=== PATIENT | female | born 1995 | race Caucasian/White ===

== ENCOUNTER 2018-09-21 03:09 | Emergency (ER) | payer MEDICAID ==
[~2018-09-21] VITALS: Ht 165.1 cm; Wt 75.0 kg
[~2018-09-21 03:09] MED LIST: FLUT200B INH; LEVO300T4 PO; ONDA4TAB10 PO; POTA10TA11 PO; PRAZ1CAP2 PO; TOPI25CA PO; VENL225T PO
[2018-09-21] MEDS ORDERED: DEXAMETHASONE 4 MG TABLET PO ONE (03:30)
[2018-09-21] MEDS ORDERED: ALBUTEROL/IPRATROPIUM 2.5MG/0.5MG, 3 ML NPPB ONE (03:30)
[2018-09-21] MEDS ORDERED: DEXAMETHASONE 4 MG TABLET ONE (03:34)
[2018-09-21] MEDS ORDERED: RACEPINEPHRINE INH 2.25%, 0.5ML NPPB PRN (04:30)
[2018-09-21 05:04] VITALS: BP 141/86
== END 2018-09-21 05:08 | disposition home or self-care (01) ==
LOC: ED 03:22
DX: J45.901 Unspecified asthma with (acute) exacerbation (principal); J05.0 Acute obstructive laryngitis [croup]; E11.9 Type 2 diabetes mellitus without complications; G89.29 Other chronic pain; F20.9 Schizophrenia, unspecified; F31.9 Bipolar disorder, unspecified
CPT/HCPCS: 71045; 93005; 94640; 99284; J7620

== ENCOUNTER 2018-10-05 18:01 | Emergency (ER) | payer MEDICAID ==
[~2018-10-05] VITALS: Ht 157.5 cm; Wt 64.6 kg
[2018-10-05 19:12] LABS: BASOPHILS # (AUTO) 0.05 x10^3/uL (0-0.1); BASOPHILS % (AUTO) 1 % (0-1); EOSINOPHILS # (AUTO) 0.06 x10^3/uL (0-0.4); EOSINOPHILS % (AUTO) 1 % (1-7); LYMPHOCYTES # (AUTO) 2.11 x10^3/uL (1-3.4); LYMPHOCYTES % (AUTO) 25 % (22-44); MD NO; MEAN CORPUSCULAR HEMOGLOBIN 31.9 pg (27.0-34.8); MEAN CORPUSCULAR HGB CONC 33.8 g/dL (32.4-35.8); MEAN CORPUSCULAR VOLUME 94.6 fL (80-100); MEAN PLATELET VOLUME 9.6 fL (7.4-10.4); MONOCYTES # (AUTO) 0.65 x10^3/uL (0.2-0.8); MONOCYTES % (AUTO) 8 % (2-9); NEUTROPHILS # (AUTO) 5.69 x10^3/uL (1.8-6.8); NEUTROPHILS % (AUTO) 66 % (42-75); PLATELET COUNT 214 x10^3/uL (130-400); RED BLOOD COUNT 4.41 x10^6/uL (3.82-5.3); RED CELL DISTRIBUTION WIDTH 13.2 % (9.6-15.2)
[2018-10-05 19:27] VITALS: BP 115/69
== END 2018-10-05 20:44 | disposition home or self-care (01) ==
LOC: ED 20:15
DX: R07.0 Pain in throat (principal); J45.909 Unspecified asthma, uncomplicated; J02.9 Acute pharyngitis, unspecified; F20.9 Schizophrenia, unspecified; R49.0 Dysphonia
CPT/HCPCS: 36415; 85025; 86308; 99284

== ENCOUNTER 2018-10-22 20:55 | Inpatient (IN) | payer MEDICAID ==
[~2018-10-22] VITALS: Ht 157.5 cm; Wt 59.9 kg
[2018-10-22] MEDS ORDERED: methylPREDNISolone SOD SUCC 125 MG/2 ML IVP ONE (21:00)
[2018-10-22] MEDS ORDERED: SODIUM CHLORIDE FLUSH 10ML SYR IVF ONE (21:00)
[2018-10-22] MEDS ORDERED: ALBUTEROL/IPRATROPIUM 2.5MG/0.5MG, 3 ML NPPB ONE (21:00)
[2018-10-22] MEDS ORDERED: ALBUTEROL/IPRATROPIUM 2.5MG/0.5MG, 3 ML ONE (21:15)
[2018-10-22 21:19] LABS: BASOPHILS # (AUTO) 0.03 x10^3/uL (0-0.1); BASOPHILS % (AUTO) 0 % (0-1); EOSINOPHILS # (AUTO) 0.07 x10^3/uL (0-0.4); EOSINOPHILS % (AUTO) 1 % (1-7); LYMPHOCYTES # (AUTO) 3.12 x10^3/uL (1-3.4); LYMPHOCYTES % (AUTO) 30 % (22-44); MD NO; MEAN CORPUSCULAR HEMOGLOBIN 31.6 pg (27.0-34.8); MEAN CORPUSCULAR HGB CONC 33.7 g/dL (32.4-35.8); MEAN CORPUSCULAR VOLUME 93.7 fL (80-100); MEAN PLATELET VOLUME 8.8 fL (7.4-10.4); MONOCYTES # (AUTO) 0.84 x10^3/uL (0.2-0.8); MONOCYTES % (AUTO) 8 % (2-9); NEUTROPHILS # (AUTO) 6.48 x10^3/uL (1.8-6.8); NEUTROPHILS % (AUTO) 62 % (42-75); PLATELET COUNT 250 x10^3/uL (130-400); RED BLOOD COUNT 4.42 x10^6/uL (3.82-5.3); RED CELL DISTRIBUTION WIDTH 13.5 % (9.6-15.2)
[2018-10-22] MEDS ORDERED: methylPREDNISolone SOD SUCC 125 MG/2 ML ONE ×2 (21:29→21:46)
[2018-10-22 21:30] LABS: ALBUMIN 3.2 g/dL (3.4-5.0); ANION GAP 13 mmol/L (5-15); CALCIUM 8.5 mg/dL (8.5-10.1); CHLORIDE 100 mmol/L (98-107); CREATININE 0.71 mg/dL (0.55-1.02)
[2018-10-22] MEDS ORDERED: OMNIPAQUE 350 MG/ML, 150 ML BOTTLE ONE (23:26)
[2018-10-22] MEDS ORDERED: INSU100C5 SQ-INSULIN (23:28)
[2018-10-22] MEDS ORDERED: ALBU18HF INH (23:28)
[2018-10-22] MEDS ORDERED: PREN-3 PO (23:28)
[2018-10-22] MEDS ORDERED: INSU100V13 SC (23:28)
[2018-10-22] MEDS ORDERED: FLUT200B INH (23:28)
[2018-10-22] MEDS ORDERED: ALBU0.63 NEB (23:28)
[2018-10-22] MEDS ORDERED: VENL150T PO (23:28)
[2018-10-22] MEDS ORDERED: ALBUTEROL SULFATE 2.5MG/0.5ML ONE (23:50)
[2018-10-22] MEDS ORDERED: SODIUM CHLORIDE 0.9% 1,000 ML IV SCH (23:51)
[2018-10-23] MEDS ORDERED: KETOROLAC 30 MG/1 ML IV PRN
[2018-10-23] MEDS ORDERED: PROMETHAZINE 25 MG/ML, 1ML IM PRN
[2018-10-23] MEDS ORDERED: ONDANSETRON 2MG/ML, 2ML IVPush PRN
[2018-10-23] MEDS ORDERED: hydrALAzine 20 MG/ML, 1ML IVPush PRN
[2018-10-23] MEDS ORDERED: DOCUSATE 100 MG CAPSULE PO PRN
[2018-10-23] MEDS ORDERED: RACEPINEPHRINE INH 2.25%, 0.5ML NPPB ONE
[2018-10-23] MEDS ORDERED: ONDANSETRON ODT 4 MG PO PRN
[2018-10-23] MEDS ORDERED: ALBUTEROL 0.5%, 20ML NPPB SCH
[2018-10-23] MEDS ORDERED: IBUPROFEN 600 MG TABLET PO PRN
[2018-10-23] MEDS ORDERED: LABETALOL 5MG/ML, 20ML IVPush PRN
[2018-10-23] MEDS ORDERED: ACETAMINOPHEN 325 MG TABLET PO PRN
[2018-10-23] MEDS ORDERED: GUAIFENESIN/DM 200-20MG, 10ML UDC PO PRN
[2018-10-23] MEDS ORDERED: FLUTICASONE/VILANTEROL 200-25MCG/INH INH SCH (00:30)
[2018-10-23 00:42] LABS: FREE T4 (FREE THYROXINE) 0.82 ng/dL (0.76-1.46)
[2018-10-23 00:45] LABS: HEMOGLOBIN A1C 9.6 % (4.2-6.3)
[2018-10-23] MEDS ORDERED: RACEPINEPHRINE INH 2.25%, 0.5ML ONE (00:45)
[2018-10-23] MEDS ORDERED: AMOXICILLIN/CLAV 875-125MG TABLET ONE (00:45)
[2018-10-23] MEDS ORDERED: HEPARIN 5,000 UNITS/ML, 1ML ONE (00:45)
[2018-10-23] MEDS: AMOXICILLIN/CLAV 875-125MG TABLET PO SCH ×3 (00:50→20:41)
[2018-10-23] MEDS: HEPARIN 5,000 UNITS/ML, 1ML SQ SCH ×3 (00:53→16:02)
[2018-10-23] MEDS ORDERED: ALBUTEROL/IPRATROPIUM 2.5MG/0.5MG, 3 ML NPPB PRN (01:00)
[2018-10-23] MEDS: ALBUTEROL/IPRATROPIUM 2.5MG/0.5MG, 3 ML NPPB SCH ×5 (01:00→18:49)
[2018-10-23] MEDS: INSULIN LISPRO 100 UNITS/ML, PEN SQ-INSULIN SCH ×5 (02:35→20:34)
[2018-10-23] MEDS: VENLAFAXINE 75 MG CAP ER PO SCH ×2 (02:35→20:41)
[2018-10-23] MEDS: INSULIN GLARGINE 100 UNITS/ML, PEN SQ-INSULIN SCH ×3 (02:35→20:33)
[2018-10-23 02:45] VITALS: BP 108/70
[2018-10-23 02:54] LABS: MICROSCOPIC NOT IND
[2018-10-23 02:58] LABS: CULTURE INDICATED? NO
[2018-10-23 05:24] LABS: BASOPHILS # (AUTO) 0.03 x10^3/uL (0-0.1); BASOPHILS % (AUTO) 0 % (0-1); EOSINOPHILS % (AUTO) 0 % (1-7); LYMPHOCYTES # (AUTO) 1.07 x10^3/uL (1-3.4); LYMPHOCYTES % (AUTO) 7 % (22-44); MD NO; MEAN CORPUSCULAR HEMOGLOBIN 31.6 pg (27.0-34.8); MEAN CORPUSCULAR HGB CONC 33.9 g/dL (32.4-35.8); MEAN CORPUSCULAR VOLUME 93.3 fL (80-100); MONOCYTES % (AUTO) 1 % (2-9); NEUTROPHILS # (AUTO) 13.47 x10^3/uL (1.8-6.8); NEUTROPHILS % (AUTO) 92 % (42-75); PLATELET COUNT 234 x10^3/uL (130-400); RED BLOOD COUNT 4.12 x10^6/uL (3.82-5.3); RED CELL DISTRIBUTION WIDTH 13.4 % (9.6-15.2)
[2018-10-23 05:44] LABS: CHLORIDE 106 mmol/L (98-107)
[2018-10-23 05:54] LABS: ALANINE AMINOTRANSFERASE 15 U/L (12-78); ALBUMIN 3.2 g/dL (3.4-5.0); ALKALINE PHOSPHATASE 158 U/L (45-117); ANION GAP 18 mmol/L (5-15); BILIRUBIN,TOTAL 0.8 mg/dL (0.2-1.0); CALCIUM 8.2 mg/dL (8.5-10.1); CHOL/HDL RATIO 6.1; CHOLESTEROL, TOTAL 164 mg/dL (140-239); CREATININE 0.84 mg/dL (0.55-1.02); HDL CHOL % 16 % (28-40); HDL CHOLESTEROL (DIRECT) 27 mg/dL (40-60); LDL CHOLESTEROL,CALCULATED 122 mg/dL (54-169); LDL/HDL RATIO 4.5 (0.5-3.0); TOTAL PROTEIN 7.1 g/dL (6.4-8.2); TRIGLYCERIDES 77 mg/dL (50-200); VLDL CHOLESTEROL 15 mg/dL (0-25)
[2018-10-23] MEDS ORDERED: LEVOTHYROXINE 100 MCG TABLET PO SCH (06:00)
[2018-10-23 07:15] VITALS: BP 106/68
[2018-10-23] MEDS ORDERED: methylPREDNISolone SOD SUCC 125 MG/2 ML ONE (07:43)
[2018-10-23] MEDS: methylPREDNISolone SOD SUCC 125 MG/2 ML IVPush SCH ×3 (07:58→20:19)
[2018-10-23] MEDS: PRENATAL VIT/IRON/FA 1 EACH TABLET PO SCH ×2 (09:22→20:41)
[2018-10-23] MEDS: BUDESONIDE 0.5 MG/2 ML INHA NPPB SCH ×2 (10:15→18:49)
[2018-10-23] MEDS: LEVETIRACETAM 500 MG TABLET PO SCH ×2 (11:14→20:41)
[2018-10-23 14:13] VITALS: BP 110/78
[2018-10-23 19:52] VITALS: BP 124/81
== END 2018-10-23 22:00 | disposition left against medical advice (07) | DRG 189 ==
LOC: ED 21:30 → EDIP 23:50 → 4NOR 10-23 01:20
PROVIDERS: ADMIT Internal Medicine; ATTEND Internal Medicine
DX: J96.01 Acute respiratory failure with hypoxia (principal); E44.0 Moderate protein-calorie malnutrition; J45.902 Unspecified asthma with status asthmaticus; D72.829 Elevated white blood cell count, unspecified; E03.9 Hypothyroidism, unspecified; E10.65 Type 1 diabetes mellitus with hyperglycemia; Z68.24 Body mass index [BMI] 24.0-24.9, adult; F17.210 Nicotine dependence, cigarettes, uncomplicated; F20.9 Schizophrenia, unspecified; F43.10 Post-traumatic stress disorder, unspecified; G43.909 Migraine, unspecified, not intractable, without status migrainosus; T38.0X5A Adverse effect of glucocorticoids and synthetic analogues, initial encounter; Z79.4 Long term (current) use of insulin; Z81.8 Family history of other mental and behavioral disorders; Z83.3 Family history of diabetes mellitus; Z53.21 Procedure and treatment not carried out due to patient leaving prior to being seen by health care provider; Y92.89 Other specified places as the place of occurrence of the external cause; Z88.8 Allergy status to other drugs, medicaments and biological substances; G40.909 Epilepsy, unspecified, not intractable, without status epilepticus
CPT/HCPCS: 36415; J7620; J7626; 70491; 71045; 71260; 80048; 80053; 80061; 81003; 82040; 82962; 83036; 83735; 84439; 84443; 84703; 85025; 86308; 87081; 87880; 93005; 94640; 94644; 96374; J1644; Q9967; J1815; J2930; J7030

== ENCOUNTER 2019-02-12 03:27 | Emergency (ER) | payer MEDICAID ==
[~2019-02-12] VITALS: Ht 157.5 cm; Wt 68.0 kg
[~2019-02-12 03:27] MED LIST changes: +ALBU0.63 NEB; +ALBU18HF INH; +INSU100C5 SQ-INSULIN; +INSU100V11 SQ; +INSU100V13 SC; +LEVE250T28 PO; +PREN-3 PO; +TOPI200T6 PO; +TRAZ50TA66 PO; +VENL150C PO; +VENL150T PO
[2019-02-12] MEDS ORDERED: KETOROLAC 30 MG/1 ML IM ONE (04:00)
[2019-02-12 04:14] LABS: BASOPHILS # (AUTO) 0.08 x10^3/uL (0-0.1); BASOPHILS % (AUTO) 1 % (0-1); EOSINOPHILS # (AUTO) 0.07 x10^3/uL (0-0.4); EOSINOPHILS % (AUTO) 1 % (1-7); LYMPHOCYTES # (AUTO) 2.39 x10^3/uL (1-3.4); LYMPHOCYTES % (AUTO) 29 % (22-44); MD NO; MEAN CORPUSCULAR HGB CONC 35.2 g/dL (32.4-35.8); MEAN CORPUSCULAR VOLUME 99.6 fL (80-100); MEAN PLATELET VOLUME 9.2 fL (7.4-10.4); MONOCYTES # (AUTO) 0.51 x10^3/uL (0.2-0.8); MONOCYTES % (AUTO) 6 % (2-9); NEUTROPHILS # (AUTO) 5.09 x10^3/uL (1.8-6.8); NEUTROPHILS % (AUTO) 63 % (42-75); PLATELET COUNT 222 x10^3/uL (130-400); RED BLOOD COUNT 3.64 x10^6/uL (3.82-5.3); RED CELL DISTRIBUTION WIDTH 14.6 % (9.6-15.2)
[2019-02-12 04:25] LABS: ALANINE AMINOTRANSFERASE 52 U/L (12-78); ALBUMIN 3.1 g/dL (3.4-5.0); ANION GAP 13 mmol/L (5-15); CHLORIDE 108 mmol/L (98-107); CREATININE 1.07 mg/dL (0.55-1.02)
--- NOTE | 2019-02-12 04:26 | NUR ---
pt in hospital gown, pt able to ambulate to bathroom steadily to provide urine sample. pt to US at this time.
[2019-02-12 04:29] LABS: ALKALINE PHOSPHATASE 139 U/L (45-117); BILIRUBIN,TOTAL 0.5 mg/dL (0.2-1.0); TOTAL PROTEIN 6.6 g/dL (6.4-8.2)
[2019-02-12 04:43] LABS: MICROSCOPIC AUTO
[2019-02-12 04:44] LABS: CULTURE INDICATED? NO
[2019-02-12] MEDS ORDERED: INSU100C5 SQ-INSULIN (05:40)
[2019-02-12] MEDS ORDERED: KETOROLAC 30 MG/1 ML ONE (05:57)
--- NOTE | 2019-02-12 06:01 | NUR ---
given toradol im shot then will be dc'd
[2019-02-12 06:14] VITALS: BP 118/78
== END 2019-02-12 06:19 | disposition home or self-care (01) ==
LOC: ED 06:00
DX: N94.4 Primary dysmenorrhea (principal); J45.909 Unspecified asthma, uncomplicated; E11.9 Type 2 diabetes mellitus without complications; F17.200 Nicotine dependence, unspecified, uncomplicated
CPT/HCPCS: 36415; 76830; 80053; 81001; 84702; 85025; 96372; 99284; J1885

== ENCOUNTER 2019-03-19 17:50 | Inpatient (IN) | payer MEDICAID ==
[~2019-03-19] VITALS: Ht 157.5 cm; Wt 68.5 kg
[2019-03-19] MEDS ORDERED: SODIUM CHLORIDE 0.9% 1,000ML IVBOLUS ONE (18:30)
[2019-03-19] MEDS ORDERED: DIPHENHYDRAMINE 50 MG/ML, 1ML IVPush ONE (18:30)
[2019-03-19] MEDS ORDERED: PROCHLORPERAZINE 5 MG/ML, 2ML IVPush ONE (18:30)
[2019-03-19] MEDS ORDERED: SODIUM CHLORIDE FLUSH 10ML SYR IVF ONE (18:30)
[2019-03-19] MEDS ORDERED: PROCHLORPERAZINE 5 MG/ML, 2ML ONE (18:46)
[2019-03-19] MEDS ORDERED: DIPHENHYDRAMINE 50 MG/ML, 1ML ONE (18:47)
[2019-03-19 18:54] LABS: ANION GAP 13 mmol/L (5-15); CALCIUM 8.9 mg/dL (8.5-10.1); CHLORIDE 103 mmol/L (98-107); CREATININE 1.16 mg/dL (0.55-1.02)
[2019-03-19 19:03] LABS: FREE T4 (FREE THYROXINE) 0.45 ng/dL (0.76-1.46)
[2019-03-19 19:22] LABS: BASOPHILS # (AUTO) 0.11 x10^3/uL (0-0.1); BASOPHILS % (AUTO) 1 % (0-1); EOSINOPHILS # (AUTO) 0.05 x10^3/uL (0-0.4); EOSINOPHILS % (AUTO) 1 % (1-7); LYMPHOCYTES # (AUTO) 2.84 x10^3/uL (1-3.4); LYMPHOCYTES % (AUTO) 28 % (22-44); MD SCAN; MEAN CORPUSCULAR HEMOGLOBIN 33.7 pg (27.0-34.8); MEAN CORPUSCULAR HGB CONC 34.3 g/dL (32.4-35.8); MEAN CORPUSCULAR VOLUME 98.1 fL (80-100); MEAN PLATELET VOLUME 9.2 fL (7.4-10.4); MONOCYTES # (AUTO) 0.53 x10^3/uL (0.2-0.8); MONOCYTES % (AUTO) 5 % (2-9); NEUTROPHILS # (AUTO) 6.74 x10^3/uL (1.8-6.8); NEUTROPHILS % (AUTO) 66 % (42-75); PLATELET COUNT 225 x10^3/uL (130-400); RED BLOOD COUNT 4.47 x10^6/uL (3.82-5.3); RED CELL DISTRIBUTION WIDTH 12.8 % (9.6-15.2)
[2019-03-19] MEDS: HEPARIN 5,000 UNITS/ML, 1ML SQ SCH (21:30)
[2019-03-19] MEDS ORDERED: ACETAMINOPHEN 325 MG TABLET PO PRN (21:30)
[2019-03-19] MEDS ORDERED: ONDANSETRON 2MG/ML, 2ML IVPush PRN (21:30)
[2019-03-19] MEDS ORDERED: INSULIN DETEMIR 15 UNIT SC SCH (21:30)
[2019-03-19] MEDS: LACTATED RINGERS 1,000 ML IV SCH (21:43)
[2019-03-19 22:31] LABS: HEMOGLOBIN A1C 8.2 % (4.2-6.3)
[2019-03-19] MEDS: LEVETIRACETAM 500 MG TABLET PO SCH (22:31)
[2019-03-19] MEDS: LIOTHYRONINE 5 MCG TABLET PO SCH (22:31)
[2019-03-19 22:32] VITALS: BP_SYST 100; BP_SYST 88; BP_SYST 96; BP_DIAS 60; BP_DIAS 65; BP_DIAS 67
[2019-03-20 01:30] VITALS: BP 93/59
[2019-03-20 01:35] VITALS: BP 112/72
[2019-03-20 01:40] VITALS: BP 98/60
[2019-03-20] MEDS: HEPARIN 5,000 UNITS/ML, 1ML SQ SCH ×2 (05:07→14:27)
[2019-03-20] MEDS ORDERED: LEVOTHYROXINE 150 MCG TABLET PO SCH (06:00)
[2019-03-20 06:14] LABS: ALBUMIN 2.8 g/dL (3.4-5.0); ANION GAP 9 mmol/L (5-15); CALCIUM 8.2 mg/dL (8.5-10.1); CHLORIDE 112 mmol/L (98-107)
[2019-03-20 06:18] LABS: ALANINE AMINOTRANSFERASE 21 U/L (12-78); ALKALINE PHOSPHATASE 137 U/L (45-117); BILIRUBIN,TOTAL 0.5 mg/dL (0.2-1.0); CREATININE 0.83 mg/dL (0.55-1.02); TOTAL PROTEIN 5.8 g/dL (6.4-8.2)
[2019-03-20] MEDS: INSULIN LISPRO 100 UNITS/ML, PEN SQ-INSULIN SCH ×6 (07:00→16:00)
[2019-03-20 08:29] VITALS: BP 100/68
[2019-03-20 08:30] VITALS: BP 102/69
[2019-03-20 08:31] VITALS: BP 102/72
[2019-03-20] MEDS ORDERED: DEXTROSE 4 GM TAB.CHEW PO PRN (09:00)
[2019-03-20] MEDS ORDERED: GLUCAGON 1 MG IM PRN (09:00)
[2019-03-20] MEDS ORDERED: SODIUM CHLORIDE FLUSH 10ML SYR IVF SCH (09:00)
[2019-03-20] MEDS ORDERED: DEXTROSE 50%, 50ML SYRINGE IVPush PRN (09:00)
[2019-03-20] MEDS ORDERED: INSULIN GLARGINE 100 UNITS/ML, PEN SQ-INSULIN SCH (09:00)
[2019-03-20] MEDS: LIOTHYRONINE 5 MCG TABLET PO SCH (09:45)
[2019-03-20] MEDS: LEVETIRACETAM 500 MG TABLET PO SCH (09:46)
[2019-03-20 09:49] LABS: AMPHETAMINE SCREEN, URINE Negative (Negative); BARBITURATE SCREEN, URINE Negative (Negative); BENZODIAZEPINE SCREEN, URINE Negative (Negative); CANNABINOID SCREEN, URINE Positive (Negative); COCAINE SCREEN, URINE Negative (Negative); METHADONE SCREEN, URINE Negative (Negative); OPIATE SCREEN, URINE Negative (Negative)
[2019-03-20] MEDS: LACTATED RINGERS 1,000 ML IV SCH ×2 (09:49→17:30)
[2019-03-20] MEDS ORDERED: LEVO300T4 PO (16:39)
== END 2019-03-20 17:46 | disposition home or self-care (01) | DRG 73 ==
LOC: ED 18:32 → EDIP 21:11 → 4EST 22:11
PROVIDERS: ADMIT Family Medicine; ATTEND Family Medicine
DX: G90.9 Disorder of the autonomic nervous system, unspecified (principal); N17.0 Acute kidney failure with tubular necrosis; E03.9 Hypothyroidism, unspecified; E86.0 Dehydration; F12.90 Cannabis use, unspecified, uncomplicated; F17.210 Nicotine dependence, cigarettes, uncomplicated; F20.9 Schizophrenia, unspecified; F31.9 Bipolar disorder, unspecified; F43.10 Post-traumatic stress disorder, unspecified; G40.909 Epilepsy, unspecified, not intractable, without status epilepticus; H53.2 Diplopia; I95.0 Idiopathic hypotension; I07.1 Rheumatic tricuspid insufficiency; J45.909 Unspecified asthma, uncomplicated; G43.909 Migraine, unspecified, not intractable, without status migrainosus; E10.649 Type 1 diabetes mellitus with hypoglycemia without coma; Z59.0 Homelessness; Z79.4 Long term (current) use of insulin; Z79.899 Other long term (current) drug therapy; Z82.3 Family history of stroke; Z91.14 Patient's other noncompliance with medication regimen
CPT/HCPCS: 36415; 80048; 80053; 80307; 82040; 82947; 82962; 83036; 83605; 84439; 84443; 84703; 85025; 93005; 93306; 96360; G0378; J0780; J1200; J1815; J7030; J7120

== ENCOUNTER 2019-04-16 18:15 | Emergency (ER) | payer MEDICAID ==
[~2019-04-16] VITALS: Ht 157.5 cm; Wt 66.0 kg
--- NOTE | 2019-04-16 18:50 | NUR ---
PT AMBULATED STEADILY TO ROOM FROM TRIAGE WITH TECH. NAD NOTED. PT REPORTS TERRELL/N/V X SEVERAL DAYS, SYNCOPAL EPISODE X1 TODAY. FSBS FOUND PT TO BE HYPERGLYCEMIC, 551. ERP AWARE. ERP AT BEDSIDE FOR INITIAL ASSESSMENT. BP/SPO2/ECG MONITORING IN PLACE. SINUS TACH ON MONITOR. REPORT TO YOLANDE MAI RN
--- NOTE | 2019-04-16 18:59 | NUR ---
BEDSIDE REPORT RECEIVED FROM DAMON CLIFFORD, ASSUMING CARE OF PT
[2019-04-16 19:21] LABS: PH, VENOUS 7.425 pH (7.320-7.420)
[2019-04-16 19:22] LABS: O2 FLOW RA L/min
[2019-04-16] MEDS ORDERED: ACETAMINOPHEN 500 MG TABLET ONE (19:23)
--- NOTE | 2019-04-16 19:24 | NUR ---
PT MEDICATED PER MAR FOR TERRELL.
[2019-04-16 19:25] LABS: BASOPHILS # (AUTO) 0.04 x10^3/uL (0-0.1); BASOPHILS % (AUTO) 1 % (0-1); EOSINOPHILS # (AUTO) 0.03 x10^3/uL (0-0.4); EOSINOPHILS % (AUTO) 0 % (1-7); LYMPHOCYTES # (AUTO) 1.84 x10^3/uL (1-3.4); LYMPHOCYTES % (AUTO) 23 % (22-44); MD NO; MEAN CORPUSCULAR HEMOGLOBIN 33.4 pg (27.0-34.8); MEAN CORPUSCULAR HGB CONC 33.4 g/dL (32.4-35.8); MEAN CORPUSCULAR VOLUME 99.9 fL (80-100); MEAN PLATELET VOLUME 9.4 fL (7.4-10.4); MONOCYTES # (AUTO) 0.73 x10^3/uL (0.2-0.8); MONOCYTES % (AUTO) 9 % (2-9); NEUTROPHILS # (AUTO) 5.26 x10^3/uL (1.8-6.8); NEUTROPHILS % (AUTO) 67 % (42-75); PLATELET COUNT 220 x10^3/uL (130-400); RED BLOOD COUNT 4.07 x10^6/uL (3.82-5.3); RED CELL DISTRIBUTION WIDTH 13.1 % (9.6-15.2)
[2019-04-16 19:30] LABS: MICROSCOPIC NOT IND
[2019-04-16] MEDS ORDERED: ACETAMINOPHEN 500 MG TABLET PO ONE (19:30)
[2019-04-16] MEDS ORDERED: SODIUM CHLORIDE FLUSH 10ML SYR IVF ONE (19:30)
[2019-04-16] MEDS ORDERED: SODIUM CHLORIDE 0.9% 1,000ML IVBOLUS ONE ×2 (19:30→20:00)
[2019-04-16 19:32] LABS: ALBUMIN 3.6 g/dL (3.4-5.0); CREATININE 0.92 mg/dL (0.55-1.02)
[2019-04-16 19:35] LABS: CULTURE INDICATED? NO
[2019-04-16 20:00] LABS: ANION GAP 7 mmol/L (5-15); CHLORIDE 101 mmol/L (98-107)
[2019-04-16 20:22] LABS: ACETONE, SERUM Small (20mg/dL) mg/dL (Negative)
--- NOTE | 2019-04-16 20:25 | NUR ---
SECOND LITER COMPLETED AND BLOOD SUGAR CHECKED, NOTIFIED. AWAITING RECHECK AND DISPO
[2019-04-16] MEDS ORDERED: INSULIN SINGLE DOSE, ER SQ-INSULIN ONE ×2 (20:51→22:08)
--- NOTE | 2019-04-16 20:54 | NUR ---
PT MEDICATED WITH INSULIIN PER JAN AND MD REQUEST. PT RESTING IN ROOM, NADN, VSS. CALL LIGHT WITHIN REACH
[2019-04-16] MEDS ORDERED: INSULIN REGULAR 100 UNITS/ML, 3ML VIAL SQ-INSULIN ONE ×2 (21:00→22:30)
--- NOTE | 2019-04-16 22:00 | NUR ---
BLOOD SUGAR RECHECKED AFTER INSULIN, 422. AWAITING MD RECHECK AND DISPO. PT SLEEPING IN ROOM, VINEET HARMON. CALL LIGHT WITHIN REACH
--- NOTE | 2019-04-16 22:10 | NUR ---
ADDITIONAL ORDERS RECEIVED FOR INSULIN, PT MEDICATED PER MAR FOR BS OF 422. STATES LOOKING FOR BLOOD SUGAR TO BE IN THE LOW 300s. WILL CONTINUE TO MONITOR.
--- NOTE | 2019-04-16 22:22 | NUR ---
PT STATES NEEDING TO LEAVE, MD UPDATED. MD TO BEDSIDE TO RECEK PT. DC PAPERS RECEIVED.
[2019-04-16 22:26] VITALS: BP 108/68
== END 2019-04-16 22:28 | disposition home or self-care (01) ==
LOC: ED 22:15
DX: E11.65 Type 2 diabetes mellitus with hyperglycemia (principal); R55 Syncope and collapse; R11.2 Nausea with vomiting, unspecified; R51 Headache; F31.9 Bipolar disorder, unspecified; J45.909 Unspecified asthma, uncomplicated; F20.9 Schizophrenia, unspecified; Z86.39 Personal history of other endocrine, nutritional and metabolic disease
CPT/HCPCS: 80048; 81003; 82010; 82040; 82803; 82962; 85025; 96360; 96372; 99283; J7030

== ENCOUNTER 2019-09-25 02:18 | Emergency (ER) | payer SELFPAY ==
[~2019-09-25] VITALS: Ht 157.5 cm; Wt 59.2 kg
[~2019-09-25 02:18] MED LIST changes: -TOPI25CA PO; +TOPI25CA3 PO
[2019-09-25] MEDS ORDERED: HYDROcodone/APAP 5/325 TABLET PO ONE (02:30)
[2019-09-25] MEDS ORDERED: HYDROcodone/APAP 5/325 TABLET ONE (02:39)
[2019-09-25 03:49] VITALS: BP 132/74
== END 2019-09-25 03:50 | disposition home or self-care (01) ==
LOC: ED 03:30
DX: S52.501A Unspecified fracture of the lower end of right radius, initial encounter for closed fracture (principal); E11.9 Type 2 diabetes mellitus without complications; F17.200 Nicotine dependence, unspecified, uncomplicated; W01.0XXA Fall on same level from slipping, tripping and stumbling without subsequent striking against object, initial encounter; Y93.89 Activity, other specified; Y92.89 Other specified places as the place of occurrence of the external cause; Y99.8 Other external cause status
CPT/HCPCS: 29125; 99283

== ENCOUNTER 2019-10-05 03:25 | Emergency (ER) | payer SELFPAY ==
[~2019-10-05] VITALS: Ht 157.5 cm; Wt 66.0 kg
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
[2019-10-05] MEDS ORDERED: ACETAMINOPHEN 500 MG TABLET ONE (03:40)
[2019-10-05] MEDS ORDERED: KETOROLAC 30 MG/1 ML ONE (03:41)
--- NOTE | 2019-10-05 03:47 | NUR ---
PT MEDICATED PER MAR
[2019-10-05] MEDS ORDERED: KETOROLAC 30 MG/1 ML IVPush ONE (04:00)
[2019-10-05] MEDS ORDERED: ACETAMINOPHEN 500 MG TABLET PO ONE (04:00)
[2019-10-05] MEDS ORDERED: SODIUM CHLORIDE 0.9% 1,000ML IVBOLUS ONE (04:00)
[2019-10-05 04:08] LABS: RAPID INFLUENZA A Negative (Negative); RAPID INFLUENZA B Negative (Negative)
[2019-10-05 04:22] LABS: BASOPHILS # (AUTO) 0.06 x10^3/uL (0-0.1); BASOPHILS % (AUTO) 1 % (0-1); EOSINOPHILS # (AUTO) 0.06 x10^3/uL (0-0.4); EOSINOPHILS % (AUTO) 1 % (1-7); LYMPHOCYTES # (AUTO) 1.49 x10^3/uL (1-3.4); LYMPHOCYTES % (AUTO) 21 % (22-44); MD NO; MEAN CORPUSCULAR HEMOGLOBIN 32.7 pg (27.0-34.8); MEAN CORPUSCULAR HGB CONC 33.3 g/dL (32.4-35.8); MEAN CORPUSCULAR VOLUME 98.2 fL (80-100); MEAN PLATELET VOLUME 9.4 fL (7.4-10.4); MONOCYTES # (AUTO) 0.58 x10^3/uL (0.2-0.8); MONOCYTES % (AUTO) 8 % (2-9); NEUTROPHILS # (AUTO) 5.06 x10^3/uL (1.8-6.8); NEUTROPHILS % (AUTO) 70 % (42-75); PLATELET COUNT 179 x10^3/uL (130-400); RED BLOOD COUNT 4.22 x10^6/uL (3.82-5.3); RED CELL DISTRIBUTION WIDTH 12.3 % (9.6-15.2)
[2019-10-05 04:24] LABS: ALANINE AMINOTRANSFERASE 29 U/L (12-78); ANION GAP 8 mmol/L (5-15); CALCIUM 8.4 mg/dL (8.5-10.1); CHLORIDE 107 mmol/L (98-107); CREATININE 0.79 mg/dL (0.55-1.02)
[2019-10-05 04:29] LABS: ALKALINE PHOSPHATASE 149 U/L (45-117); BILIRUBIN,TOTAL 0.9 mg/dL (0.2-1.0); TOTAL PROTEIN 6.6 g/dL (6.4-8.2)
[2019-10-05 04:30] VITALS: BP 104/68
--- NOTE | 2019-10-05 04:35 | NUR ---
PROVIDED PT WITH [facility] PER HER REQUEST, DENIES FURTHER NEEDS AT THIS TIME
== END 2019-10-05 05:15 | disposition home or self-care (01) ==
LOC: ED 03:40
DX: J02.8 Acute pharyngitis due to other specified organisms (principal); J31.0 Chronic rhinitis; B97.89 Other viral agents as the cause of diseases classified elsewhere; R11.2 Nausea with vomiting, unspecified; E11.9 Type 2 diabetes mellitus without complications; J45.909 Unspecified asthma, uncomplicated; F31.9 Bipolar disorder, unspecified; F20.9 Schizophrenia, unspecified; E03.9 Hypothyroidism, unspecified; F17.200 Nicotine dependence, unspecified, uncomplicated; Z91.040 Latex allergy status
CPT/HCPCS: 36415; 71045; 80053; 83690; 84703; 85025; 87400; 93005; 96361; 96374; 99284; J1885; J7030

== ENCOUNTER 2019-10-16 18:53 | Emergency (ER) | payer MEDICAID, OTHER ==
[~2019-10-16] VITALS: Ht 157.5 cm; Wt 66.4 kg
[2019-10-16 18:54] VITALS: BP 117/72
--- NOTE | 2019-10-16 19:39 | NUR ---
TO ROOM 06
== END 2019-10-16 20:32 | disposition home or self-care (01) ==
LOC: ED 20:26
DX: E10.65 Type 1 diabetes mellitus with hyperglycemia (principal); Z76.0 Encounter for issue of repeat prescription; Z86.39 Personal history of other endocrine, nutritional and metabolic disease; J45.909 Unspecified asthma, uncomplicated
CPT/HCPCS: 99283

== ENCOUNTER 2019-10-30 09:18 | Emergency (ER) | payer MEDICAID ==
[~2019-10-30] VITALS: Ht 157.5 cm; Wt 67.3 kg
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
[2019-10-30] MEDS ORDERED: SODIUM CHLORIDE FLUSH 10ML SYR IVF ONE (10:00)
[2019-10-30] MEDS ORDERED: DIPHENHYDRAMINE 50 MG/ML, 1ML IVPush ONE (10:00)
[2019-10-30] MEDS ORDERED: METOCLOPRAMIDE 5 MG/ML, 2ML IVPush ONE (10:00)
[2019-10-30] MEDS ORDERED: KETOROLAC 30 MG/1 ML IVPush ONE (10:00)
[2019-10-30] MEDS ORDERED: SODIUM CHLORIDE 0.9% 1,000ML IVBOLUS ONE (10:00)
[2019-10-30 10:03] LABS: MICROSCOPIC NOT IND
[2019-10-30] MEDS ORDERED: DIPHENHYDRAMINE 50 MG/ML, 1ML ONE (10:04)
--- NOTE | 2019-10-30 10:04 | NUR ---
TRIAGE AND CLINICAL SCREEN REVIEWED. URINE COLLECTED/SENT TO LAB. CALL LIGHT WITHIN REACH. Addendum: 10/30/19 at 1044 by KEMI [facility] AT [facility] D/T PT REPORT OF "DIARRHEA" FOR THREE DAYS.
[2019-10-30] MEDS ORDERED: METOCLOPRAMIDE 5 MG/ML, 2ML ONE (10:05)
[2019-10-30] MEDS ORDERED: KETOROLAC 30 MG/1 ML ONE (10:05)
[2019-10-30 10:07] LABS: CULTURE INDICATED? NO
--- NOTE | 2019-10-30 10:09 | NUR ---
LMP>2 MONTHS AGO, WAITING FOR HCG PRIOR TO PCXR
[2019-10-30 10:18] LABS: PH, VENOUS 7.372 pH (7.320-7.420)
[2019-10-30 10:22] LABS: BASOPHILS # (AUTO) 0.02 x10^3/uL (0-0.1); BASOPHILS % (AUTO) 1 % (0-1); EOSINOPHILS # (AUTO) 0.02 x10^3/uL (0-0.4); EOSINOPHILS % (AUTO) 0 % (1-7); LYMPHOCYTES # (AUTO) 1.66 x10^3/uL (1-3.4); LYMPHOCYTES % (AUTO) 42 % (22-44); MD NO; MEAN CORPUSCULAR HEMOGLOBIN 32.2 pg (27.0-34.8); MEAN CORPUSCULAR HGB CONC 33.4 g/dL (32.4-35.8); MEAN CORPUSCULAR VOLUME 96.3 fL (80-100); MONOCYTES # (AUTO) 0.43 x10^3/uL (0.2-0.8); MONOCYTES % (AUTO) 11 % (2-9); NEUTROPHILS # (AUTO) 1.85 x10^3/uL (1.8-6.8); NEUTROPHILS % (AUTO) 47 % (42-75); PLATELET COUNT 148 x10^3/uL (130-400); RED BLOOD COUNT 4.28 x10^6/uL (3.82-5.3); RED CELL DISTRIBUTION WIDTH 13.1 % (9.6-15.2)
--- NOTE | 2019-10-30 10:25 | NUR ---
task RN note: PIV placed, pt medicated per emar for headache, pt tolerated well. IVF infusing at this time. Report given to primary RN Susi.
[2019-10-30 10:33] LABS: ALANINE AMINOTRANSFERASE 42 U/L (12-78); ALBUMIN 3.1 g/dL (3.4-5.0); ANION GAP 11 mmol/L (5-15); CALCIUM 8.4 mg/dL (8.5-10.1); CHLORIDE 103 mmol/L (98-107); CREATININE 0.85 mg/dL (0.55-1.02)
[2019-10-30 10:36] LABS: ACETONE, SERUM Small (20mg/dL) mg/dL (Negative)
[2019-10-30 10:38] LABS: ALKALINE PHOSPHATASE 148 U/L (45-117); BILIRUBIN,TOTAL 0.4 mg/dL (0.2-1.0)
--- NOTE | 2019-10-30 10:40 | NUR ---
STOOL COLLECTED/WALKED TO LAB. LAB IN TO DRAW. Addendum: 10/30/19 at 1043 by KEMI ERROR, LABS DRAWN ALREADY
[2019-10-30 11:17] LABS: CLOSTRIDIUM DIFFICILE ANTIGEN NEGATIVE; CLOSTRIDIUM DIFFICILE TOXIN NEGATIVE (Negative)
[2019-10-30 11:21] VITALS: BP 114/70
== END 2019-10-30 12:05 | disposition home or self-care (01) ==
LOC: ED 10:18
DX: G43.909 Migraine, unspecified, not intractable, without status migrainosus (principal); E11.65 Type 2 diabetes mellitus with hyperglycemia; R19.7 Diarrhea, unspecified; F17.210 Nicotine dependence, cigarettes, uncomplicated; J45.909 Unspecified asthma, uncomplicated
CPT/HCPCS: 36415; 71045; 80053; 81003; 82010; 82803; 84703; 85025; 87324; 96361; 96374; 96375; 99284; J1200; J1885; J2765; J7030

== ENCOUNTER 2019-12-02 12:36 | Emergency (ER) | payer MEDICAID ==
[~2019-12-02] VITALS: Ht 157.5 cm; Wt 64.9 kg
--- NOTE | 2019-12-02 13:26 | NUR ---
pt to room 28 from the lobby. pt ambulates with a steady gait.
[2019-12-02] MEDS ORDERED: ONDANSETRON ODT 4 MG ONE (13:47)
[2019-12-02] MEDS ORDERED: ACETAMINOPHEN 325 MG TABLET ONE (13:47)
--- NOTE | 2019-12-02 13:57 | NUR ---
in room to medicate pt. pt is in bed with significant other cuddled up whild child is in chair in corner. water provided to pt for po meds. lab in room at this time.
[2019-12-02] MEDS ORDERED: ONDANSETRON 2MG/ML, 2ML IVPush ONE (14:00)
[2019-12-02] MEDS ORDERED: ONDANSETRON ODT 4 MG PO ONE (14:00)
[2019-12-02] MEDS ORDERED: ACETAMINOPHEN 325 MG TABLET PO ONE (14:00)
[2019-12-02] MEDS ORDERED: SODIUM CHLORIDE FLUSH 10ML SYR IVF ONE (14:00)
[2019-12-02] MEDS ORDERED: MORPHINE SULFATE 4 MG/ML, 1ML IVPush PRN (14:00)
[2019-12-02 14:13] LABS: BASOPHILS # (AUTO) 0.03 x10^3/uL (0-0.1); BASOPHILS % (AUTO) 0 % (0-1); EOSINOPHILS # (AUTO) 0.02 x10^3/uL (0-0.4); EOSINOPHILS % (AUTO) 0 % (1-7); LYMPHOCYTES # (AUTO) 1.06 x10^3/uL (1-3.4); LYMPHOCYTES % (AUTO) 11 % (22-44); MD NO; MEAN CORPUSCULAR HEMOGLOBIN 32.9 pg (27.0-34.8); MEAN CORPUSCULAR HGB CONC 33.1 g/dL (32.4-35.8); MEAN CORPUSCULAR VOLUME 99.3 fL (80-100); MEAN PLATELET VOLUME 8.6 fL (7.4-10.4); MONOCYTES # (AUTO) 1.32 x10^3/uL (0.2-0.8); MONOCYTES % (AUTO) 13 % (2-9); NEUTROPHILS # (AUTO) 7.71 x10^3/uL (1.8-6.8); NEUTROPHILS % (AUTO) 76 % (42-75); PLATELET COUNT 185 x10^3/uL (130-400); RED BLOOD COUNT 4.03 x10^6/uL (3.82-5.3); RED CELL DISTRIBUTION WIDTH 14.7 % (9.6-15.2)
[2019-12-02] MEDS ORDERED: METOCLOPRAMIDE 5 MG/ML, 2ML ONE (14:19)
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
[2019-12-02 14:22] LABS: ALBUMIN 2.8 g/dL (3.4-5.0); ANION GAP 10 mmol/L (5-15); CALCIUM 8.4 mg/dL (8.5-10.1); CHLORIDE 100 mmol/L (98-107); CREATININE 0.62 mg/dL (0.55-1.02)
[2019-12-02] MEDS ORDERED: METOCLOPRAMIDE 5 MG/ML, 2ML IM ONE (14:30)
[2019-12-02 15:09] LABS: MICROSCOPIC NOT IND
--- NOTE | 2019-12-02 15:11 | NUR ---
TASK RN: WARM BLANKET PROVIDED. PT LAYING ON [place]. EDEN. FAMILY BEDSIDE. NO OTHER NEEDS REQUESTED AT THIS TIME.
--- NOTE | 2019-12-02 15:37 | NUR ---
TASK RN: BEDSIDE REPORT TO VENESSA SCHERER.
--- NOTE | 2019-12-02 16:53 | NUR ---
PT BACK FROM CT NOW. PT HAS NO WANTS OR NEEDS. UPDATED ON POC AND PT AGREES.
[2019-12-02 16:56] VITALS: BP 106/70
[2020-04-09] MEDS ORDERED: INSU100V13 SC (12:32)
[2020-04-09] MEDS ORDERED: POTA20TA6 PO (12:32)
[2020-04-09] MEDS ORDERED: AMOX500T PO (12:32)
[2020-04-09] MEDS ORDERED: LEVE250T28 PO (12:32)
[2020-04-09] MEDS ORDERED: INSU100C5 SQ-INSULIN (12:32)
[2020-04-09] MEDS ORDERED: LEVO300T4 PO (12:32)
== END 2019-12-02 18:40 | disposition home or self-care (01) ==
LOC: ED 18:30
DX: N10 Acute pyelonephritis (principal); E11.9 Type 2 diabetes mellitus without complications
CPT/HCPCS: 36415; 74176; 80048; 81003; 82040; 84703; 85025; 96372; 99284; J2765; Q0162

== ENCOUNTER 2020-05-16 04:46 | Emergency (ER) | payer MEDICAID ==
[~2020-05-16] VITALS: Ht 157.5 cm; Wt 60.0 kg
[~2020-05-16 04:46] MED LIST changes: +AMOX500T PO; +POTA20TA6 PO
[2020-05-16 04:50] VITALS: BP 142/96
--- NOTE | 2020-05-16 05:22 | NUR ---
LOBBY STAFF REPORTS THAT PT ELOPED WITH SIGNIFICANT OTHER
== END 2020-05-16 06:01 | disposition left against medical advice (07) ==
LOC: ED 05:33
DX: M79.646 Pain in unspecified finger(s) (principal); M79.643 Pain in unspecified hand; Z53.21 Procedure and treatment not carried out due to patient leaving prior to being seen by health care provider

== ENCOUNTER 2020-08-07 07:21 | Emergency (ER) | payer MEDICAID ==
[~2020-08-07] VITALS: Ht 152.4 cm; Wt 59.0 kg
--- NOTE | 2020-08-07 07:32 | NUR ---
THIS RN PRESENT DURING EDPA ASSESSMENT.
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
[2020-08-07] MEDS ORDERED: ONDANSETRON 2MG/ML, 2ML ONE (07:51)
[2020-08-07] MEDS ORDERED: MORPHINE SULFATE 4 MG/ML, 1ML ONE (07:51)
--- NOTE | 2020-08-07 07:56 | NUR ---
PIV ESTABLISHED SLEEVE SETTER. PT NOW RESTING ON [employer]. NO MOANING OR GRIMACING. WCTM
[2020-08-07] MEDS ORDERED: ONDANSETRON 2MG/ML, 2ML IVPush ONE (08:00)
[2020-08-07] MEDS ORDERED: MORPHINE SULFATE 4 MG/ML, 1ML IVPush PRN (08:00)
[2020-08-07] MEDS ORDERED: SODIUM CHLORIDE FLUSH 10ML SYR IVF ONE (08:00)
[2020-08-07 08:04] LABS: BASOPHILS # (AUTO) 0.06 x10^3/uL (0-0.1); BASOPHILS % (AUTO) 1 % (0-1); EOSINOPHILS # (AUTO) 0.06 x10^3/uL (0-0.4); EOSINOPHILS % (AUTO) 1 % (1-7); LYMPHOCYTES # (AUTO) 1.99 x10^3/uL (1-3.4); LYMPHOCYTES % (AUTO) 24 % (22-44); MD NO; MEAN CORPUSCULAR HEMOGLOBIN 34.3 pg (27.0-34.8); MEAN CORPUSCULAR HGB CONC 33.1 g/dL (32.4-35.8); MEAN CORPUSCULAR VOLUME 103.7 fL (80-100); MEAN PLATELET VOLUME 7.9 fL (7.4-10.4); MONOCYTES # (AUTO) 0.54 x10^3/uL (0.2-0.8); MONOCYTES % (AUTO) 7 % (2-9); NEUTROPHILS # (AUTO) 5.68 x10^3/uL (1.8-6.8); NEUTROPHILS % (AUTO) 68 % (42-75); PLATELET COUNT 250 x10^3/uL (130-400); RED CELL DISTRIBUTION WIDTH 15.8 % (9.6-15.2)
[2020-08-07 08:12] LABS: ALBUMIN 2.6 g/dL (3.4-5.0); ANION GAP 12 mmol/L (5-15); CALCIUM 7.3 mg/dL (8.5-10.1); CHLORIDE 117 mmol/L (98-107)
[2020-08-07 08:16] LABS: ALANINE AMINOTRANSFERASE 44 U/L (12-78); ALKALINE PHOSPHATASE 184 U/L (45-117); BILIRUBIN,TOTAL 0.5 mg/dL (0.2-1.0); CREATININE 0.79 mg/dL (0.55-1.02); TOTAL PROTEIN 5.7 g/dL (6.4-8.2)
--- NOTE | 2020-08-07 08:39 | NUR ---
PT UNABLE TO VOID AT THIS TIME. WCTM. PT SLEEPING INTERMITTENTLY ON GURNEY. EDEN.
--- NOTE | 2020-08-07 08:52 | NUR ---
PT TO IMAGING
--- NOTE | 2020-08-07 09:20 | NUR ---
PT BACK TO IMAGING. PT STATES SHE PROBABLY CAN'T WALK RIGHT NOW. PT REFUSES TO TRY. PT REFUSES BED MCMILLAN. NADN. PT SLEEPY AND RESTING ON GURNEY. PT REFUSES BP CUFF AT THIS TIME.
--- NOTE | 2020-08-07 10:23 | NUR ---
PT RESTING ON GURNEY. PT STATES SHE CAN'T URINATE AT THIS TIME. EDEN.
--- NOTE | 2020-08-07 10:53 | NUR ---
PT AMBULATORY WITH STEADY GAIT, SLIGHT LEFT LEG LIMP D/T DISCOMFORT, TO BATHROOM TO GIVE UA.
--- NOTE | 2020-08-07 11:05 | NUR ---
UA SENT. PT REATTACHED ON ALL MONITORS. EDEN.
[2020-08-07 11:28] LABS: MICROSCOPIC INDICATED
[2020-08-07 11:42] VITALS: BP 102/73
--- NOTE | 2020-08-07 11:43 | NUR ---
PT RESTING ON [employer]. KNEE AUGUSTA WRAPPED FROM EMT. HERNÁNN
--- NOTE | 2020-08-07 12:13 | NUR ---
CM CALLED TO SPEAK WITH PT AND GIVE RESOURCES Addendum: 08/07/20 at 1215 by NAE SOCIAL WORK TO SEE PT, NOT CM
--- NOTE | 2020-08-07 12:54 | NUR ---
SOCIAL WORK SPOKE WITH PT. PT GIVEN TAXI VOUCHER. PT ADJUSTED CRUTCHES HERSELF. STATED "I DIDN'T LIKE HOW THEY WERE." NADN. Patient/Caregiver given discharge instructions and they have confirmed that they understand the instructions. Patient ambulatory with steady gait USING CRUTCHES. PT LEFT WITH ALL PERSONAL BELONGINGS.
== END 2020-08-07 12:56 | disposition home or self-care (01) ==
LOC: ED 08:06
DX: S16.1XXA Strain of muscle, fascia and tendon at neck level, initial encounter (principal); S00.12XA Contusion of left eyelid and periocular area, initial encounter; S10.93XA Contusion of unspecified part of neck, initial encounter; S20.212A Contusion of left front wall of thorax, initial encounter; S30.0XXA Contusion of lower back and pelvis, initial encounter; S70.12XA Contusion of left thigh, initial encounter; S80.02XA Contusion of left knee, initial encounter; S80.812A Abrasion, left lower leg, initial encounter; L03.116 Cellulitis of left lower limb; R73.9 Hyperglycemia, unspecified; Z91.040 Latex allergy status; Y04.8XXA Assault by other bodily force, initial encounter; Y93.89 Activity, other specified; Y92.009 Unspecified place in unspecified non-institutional (private) residence as the place of occurrence of the external cause; Y99.8 Other external cause status
CPT/HCPCS: 36415; 70450; 70486; 71045; 72125; 73502; 73564; 80053; 81001; 85025; 96374; 96375; 99285; J2270; J2405

== ENCOUNTER 2020-08-22 07:57 | Inpatient (IN) | payer MEDICAID, OTHER ==
[~2020-08-22] VITALS: Ht 152.4 cm; Wt 51.5 kg
[2020-08-22] MEDS ORDERED: SODIUM CHLORIDE 0.9% 1,000ML IVBOLUS ONE ×2 (08:00→09:00)
[2020-08-22] MEDS ORDERED: AMPICILLIN/SULBACTAM 3 GM in SODIUM CHLORIDE 0.9% 100 ML IV ONE (08:00)
[2020-08-22] MEDS ORDERED: ONDANSETRON 2MG/ML, 2ML IVPush ONE (08:00)
[2020-08-22] MEDS ORDERED: VANCOMYCIN PER PHARMACY MC PRN ×2 (08:00→13:00)
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
[2020-08-22] MEDS ORDERED: ONDANSETRON 2MG/ML, 2ML ONE (08:06)
[2020-08-22 08:23] LABS: BASOPHILS # (AUTO) 0.07 x10^3/uL (0-0.1); BASOPHILS % (AUTO) 1 % (0-1); EOSINOPHILS # (AUTO) 0.08 x10^3/uL (0-0.4); EOSINOPHILS % (AUTO) 1 % (1-7); LYMPHOCYTES % (AUTO) 28 % (22-44); MD NO; MEAN CORPUSCULAR HEMOGLOBIN 33.2 pg (27.0-34.8); MEAN CORPUSCULAR HGB CONC 31.5 g/dL (32.4-35.8); MEAN PLATELET VOLUME 8.6 fL (7.4-10.4); MONOCYTES % (AUTO) 5 % (2-9); NEUTROPHILS # (AUTO) 7.26 x10^3/uL (1.8-6.8); NEUTROPHILS % (AUTO) 67 % (42-75); PLATELET COUNT 387 x10^3/uL (130-400); RED CELL DISTRIBUTION WIDTH 15.3 % (9.6-15.2)
--- NOTE | 2020-08-22 08:25 | NUR ---
PIV STARTED BY CHIKIS CLIFFORD USING US, LABS DRAWN AND 1ST SET OF BLOOD CULTURES. PT MEDICATED PER EMAR.
[2020-08-22] MEDS ORDERED: VANCOMYCIN 1,100 MG in SODIUM CHLORIDE 0.9% 250 ML IV ONE (08:30)
[2020-08-22 08:36] LABS: ALANINE AMINOTRANSFERASE 88 U/L (12-78); ALBUMIN 3.4 g/dL (3.4-5.0); ANION GAP 25 mmol/L (5-15); CHLORIDE 97 mmol/L (98-107); CREATININE 1.21 mg/dL (0.55-1.02)
[2020-08-22 08:40] LABS: ALKALINE PHOSPHATASE 321 U/L (45-117); TOTAL PROTEIN 7.9 g/dL (6.4-8.2)
--- NOTE | 2020-08-22 08:48 | NUR ---
LAB IN ROOM FOR SECOND SET OF CULTURES.
[2020-08-22] MEDS ORDERED: REGULAR INSULIN 100 UNITS in SODIUM CHLORIDE 0.9% 99 ML IV PRN ×2 (08:57→12:25)
--- NOTE | 2020-08-22 09:01 | NUR ---
PT AMBULATED TO BEDSIDE COMMODE, PROVIDED CLEAN CATCH URINE SPECIMEN.
[2020-08-22 09:16] LABS: MICROSCOPIC NOT IND
[2020-08-22] MEDS: SODIUM CHLORIDE 0.9% 1,000 ML IV SCH ×8 (09:20→22:26)
[2020-08-22 09:26] LABS: PH, VENOUS 7.012 pH (7.320-7.420)
[2020-08-22 09:47] LABS: ACETONE, SERUM Large (80mg/dL) (Negative)
--- NOTE | 2020-08-22 09:53 | NUR ---
TELEPHONE CALL TO PHARMACY REGARDING DELAY IN INSULIN. TECH STATES SHE WILL BE SENDING IT NOW.
--- NOTE | 2020-08-22 10:04 | NUR ---
INSULIN DRIP STARTED AT 5UNITS/HR PER PROTOCOL. VERIFIED BY BRENDEN CLIFFORD.
--- NOTE | 2020-08-22 10:20 | NUR ---
PT AMBULATED TO THE BR W/ A STEADY GAIT.
--- NOTE | 2020-08-22 10:23 | NUR ---
PIV STARTED BY EMS NOT ADEQUATE FOR 2ND LINE. PIV PULLED. RACHEL RN IN ROOM TO START 2ND LINE.
--- NOTE | 2020-08-22 10:27 | NUR ---
DELAY IN 2ND ABX DUE TO PIV ACCESS.
--- NOTE | 2020-08-22 10:42 | NUR ---
TASK RN NOTE: PT HAS EXTREMELY POOR ACCESS. PIV TO RT ARM TOO POSITIONAL FOR ANTIBIOTIC INFUSION. PIV PLACED TO LEFT EJ PLACED AT REQUEST OF PRIMARY RN SOLO. PT EDUCATED REGARDING PROCESS, STATES SHE HAS REQUIRED MANY EJ'S IN PAST. PT AGREES TO EJ PLACEMENT. LEFT EJ PIV PLACED ON FIRST ATTEMPT, FLUSHES WELL WITH GOOD BLOOD RETURN. NO S/SX INFILTRATION WITH FLUSH. PT TOLERATED INSERTION WELL. PRIMARY RN NOTIFIED.
[2020-08-22] MEDS ORDERED: LEVE250T28 PO (10:55)
--- NOTE | 2020-08-22 11:07 | NUR ---
INSULIN DRIP TITTRATED DOWN TO 3UNITS/HR PER PROTOCOL. VERIFIED BY CHIKIS CLIFFORD.
--- NOTE | 2020-08-22 11:14 | NUR ---
[facility] CALLED BACK @[id number]
--- NOTE | 2020-08-22 11:52 | NUR ---
[facility] AT BEDSIDE.
[2020-08-22] MEDS ORDERED: MORPHINE SULFATE 4 MG/ML, 1ML ONE (12:17)
--- NOTE | 2020-08-22 12:23 | NUR ---
INSULIN DRIP TITRATED TO 2UNITS/HR PER PROTOCOL. VERIFIED BY CRYSTAL CLIFFORD.
[2020-08-22] MEDS: D5%-0.45NACL+KCL 20MEQ 1,000 ML IV SCH ×2 (12:25→17:36)
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
[2020-08-22] MEDS ORDERED: DEXTROSE 50%, 50ML SYRINGE IVPush PRN (12:30)
[2020-08-22] MEDS ORDERED: LABETALOL 5MG/ML, 20ML IVPush PRN (12:30)
[2020-08-22] MEDS ORDERED: ONDANSETRON 2MG/ML, 2ML IVPush PRN (12:30)
[2020-08-22] MEDS ORDERED: DEXTROSE 4 GM TAB.CHEW PO PRN (12:30)
[2020-08-22] MEDS ORDERED: BISACODYL 10 MG SUPP PR PRN (12:30)
[2020-08-22] MEDS ORDERED: ONDANSETRON ODT 4 MG PO PRN (12:30)
[2020-08-22] MEDS ORDERED: MORPHINE SULFATE 4 MG/ML, 1ML IVPush ONE (12:30)
[2020-08-22] MEDS ORDERED: GLUCAGON 1 MG IM PRN (12:30)
[2020-08-22 13:04] LABS: ANION GAP 17 mmol/L (5-15); CALCIUM 6.8 mg/dL (8.5-10.1); CHLORIDE 114 mmol/L (98-107); CREATININE 0.99 mg/dL (0.55-1.02)
[2020-08-22] MEDS ORDERED: NEOSPORIN OINT. PKT 1 PACKET ONE (13:05)
[2020-08-22 13:10] LABS: AMPHETAMINE SCREEN, URINE Positive (Negative); BARBITURATE SCREEN, URINE Negative (Negative); BENZODIAZEPINE SCREEN, URINE Negative (Negative); CANNABINOID SCREEN, URINE Negative (Negative); COCAINE SCREEN, URINE Negative (Negative); METHADONE SCREEN, URINE Negative (Negative); OPIATE SCREEN, URINE Negative (Negative)
[2020-08-22 13:14] LABS: FREE T4 (FREE THYROXINE) 0.44 ng/dL (0.76-1.46)
--- NOTE | 2020-08-22 13:41 | NUR ---
PT TRANSPORTED TO CCU. INSULIN DRIP INFUSING PER PROTOCOL AT 2UNITS/HR. RESP EVEN AND UNLABORED, EDEN.
[2020-08-22] MEDS ORDERED: PHARMACOKINETIC MONITORING MC PRN (14:00)
[2020-08-22] MEDS ORDERED: PHARMACOKINETIC CONSULTATION MC ONE (14:00)
[2020-08-22] MEDS: KETOROLAC 30 MG/1 ML IV PRN ×2 (14:19→21:04)
[2020-08-22] MEDS: ENOXAPARIN 30 MG/0.3 ML SQ SCH ×2 (14:28→23:35)
[2020-08-22 14:31] VITALS: BP 107/74
[2020-08-22] MEDS: AMPICILLIN/SULBACTAM 1,500 MG in SODIUM CHLORIDE 0.9% 50 ML IV SCH ×2 (16:23→22:26)
[2020-08-22] MEDS: ACETAMINOPHEN 325 MG TABLET PO PRN ×2 (16:36→21:04)
[2020-08-22 16:46] LABS: ANION GAP 12 mmol/L (5-15); CALCIUM 6.8 mg/dL (8.5-10.1); CHLORIDE 114 mmol/L (98-107); CREATININE 0.75 mg/dL (0.55-1.02)
[2020-08-22] MEDS: VANCOMYCIN PMX 1GM/200ML 200 ML IVPB SCH (19:53)
[2020-08-22] MEDS: SODIUM CHLORIDE FLUSH 10ML SYR IVF SCH (21:00)
[2020-08-22] MEDS: FAMOTIDINE 20 MG/2 ML IVPush SCH (21:04)
[2020-08-22] MEDS: LEVETIRACETAM 500 MG TABLET PO SCH (21:04)
[2020-08-22 21:11] LABS: ANION GAP 8 mmol/L (5-15); CALCIUM 6.8 mg/dL (8.5-10.1); CHLORIDE 114 mmol/L (98-107); CREATININE 0.68 mg/dL (0.55-1.02)
[2020-08-22] MEDS ORDERED: POTASSIUM CHLORIDE 20 MEQ TAB.ER.PRT PO ONE (22:00)
[2020-08-22] MEDS ORDERED: INSULIN LISPRO 100 UNITS/ML, PEN SQ-INSULIN SCH (23:00)
[2020-08-22] MEDS: INSULIN LISPRO 100 UNITS/ML, PEN SQ-INSULIN SCH (23:30)
[2020-08-22] MEDS: INSULIN GLARGINE 100 UNITS/ML, PEN SQ-INSULIN SCH (23:35)
[2020-08-23 01:03] LABS: ANION GAP 8 mmol/L (5-15); CALCIUM 7.2 mg/dL (8.5-10.1); CHLORIDE 114 mmol/L (98-107); CREATININE 0.56 mg/dL (0.55-1.02)
[2020-08-23] MEDS: SODIUM CHLORIDE 0.9% 1,000 ML IV SCH ×4 (03:25→09:02)
[2020-08-23] MEDS: AMPICILLIN/SULBACTAM 1,500 MG in SODIUM CHLORIDE 0.9% 50 ML IV SCH ×3 (03:29→17:25)
[2020-08-23] MEDS: D5%-0.45NACL+KCL 20MEQ 1,000 ML IV SCH (03:29)
[2020-08-23 04:00] VITALS: BP 121/81
[2020-08-23 04:34] LABS: ANION GAP 9 mmol/L (5-15); CALCIUM 7.5 mg/dL (8.5-10.1); CHLORIDE 114 mmol/L (98-107); CREATININE 0.61 mg/dL (0.55-1.02)
[2020-08-23] MEDS: INSULIN LISPRO 100 UNITS/ML, PEN SQ-INSULIN SCH ×5 (05:49→22:18)
[2020-08-23] MEDS: ACETAMINOPHEN 325 MG TABLET PO PRN (05:50)
[2020-08-23] MEDS: KETOROLAC 30 MG/1 ML IV PRN (05:50)
[2020-08-23] MEDS: LEVOTHYROXINE 100 MCG TABLET PO SCH (05:55)
[2020-08-23 06:09] LABS: ALBUMIN 2.5 g/dL (3.4-5.0); BILIRUBIN, DIRECT 0.2 mg/dL (0.1-0.2)
[2020-08-23 06:11] LABS: BILIRUBIN,INDIRECT 0.3 mg/dL (0.0-2.0); BILIRUBIN,TOTAL 0.5 mg/dL (0.2-1.0); TOTAL PROTEIN 5.8 g/dL (6.4-8.2)
[2020-08-23 08:16] LABS: ANION GAP 14 mmol/L (5-15); CALCIUM 7.4 mg/dL (8.5-10.1); CHLORIDE 111 mmol/L (98-107)
[2020-08-23] MEDS: VANCOMYCIN PMX 1GM/200ML 200 ML IVPB SCH ×2 (08:29→20:14)
[2020-08-23] MEDS: INSULIN GLARGINE 100 UNITS/ML, PEN SQ-INSULIN SCH ×2 (08:36→22:19)
[2020-08-23] MEDS: SENNA/DOCUSATE TABLET PO SCH (08:41)
[2020-08-23] MEDS: FAMOTIDINE 20 MG/2 ML IVPush SCH ×2 (08:41→22:17)
[2020-08-23] MEDS: LEVETIRACETAM 500 MG TABLET PO SCH ×2 (08:41→22:16)
[2020-08-23] MEDS: SODIUM CHLORIDE FLUSH 10ML SYR IVF SCH ×2 (08:41→22:19)
[2020-08-23] MEDS ORDERED: SODIUM CHLORIDE 0.9% 1,000 ML IV SCH (10:00)
[2020-08-23] MEDS: ENOXAPARIN 30 MG/0.3 ML SQ SCH (12:30)
[2020-08-23 13:55] LABS: ANION GAP 7 mmol/L (5-15); CALCIUM 7.9 mg/dL (8.5-10.1); CHLORIDE 114 mmol/L (98-107); CREATININE 0.82 mg/dL (0.55-1.02)
[2020-08-23] MEDS ORDERED: POTASSIUM CHLORIDE 20 MEQ TAB.ER.PRT PO ONE (14:30)
[2020-08-23] MEDS: NS + 20MEQ KCL 1,000 ML IV SCH (16:05)
[2020-08-23] MEDS ORDERED: GABA-826 PO (17:10)
[2020-08-23 18:50] VITALS: BP 109/75
[2020-08-23 20:57] LABS: ANION GAP 7 mmol/L (5-15); CALCIUM 7.6 mg/dL (8.5-10.1); CHLORIDE 112 mmol/L (98-107); CREATININE 1.05 mg/dL (0.55-1.02)
[2020-08-24] MEDS: AMPICILLIN/SULBACTAM 1,500 MG in SODIUM CHLORIDE 0.9% 50 ML IV SCH ×3 (00:17→11:29)
[2020-08-24] MEDS: ENOXAPARIN 30 MG/0.3 ML SQ SCH ×2 (00:28→12:30)
[2020-08-24 00:32] VITALS: BP 116/76
[2020-08-24] MEDS: NS + 20MEQ KCL 1,000 ML IV SCH ×2 (02:20→11:45)
[2020-08-24] MEDS: LEVOTHYROXINE 100 MCG TABLET PO SCH (05:58)
[2020-08-24] MEDS: KETOROLAC 30 MG/1 ML IV PRN (06:36)
[2020-08-24] MEDS: INSULIN LISPRO 100 UNITS/ML, PEN SQ-INSULIN SCH ×2 (07:00→11:00)
[2020-08-24 08:12] VITALS: BP 126/80
[2020-08-24] MEDS: VANCOMYCIN PMX 1GM/200ML 200 ML IVPB SCH (08:39)
[2020-08-24] MEDS: SODIUM CHLORIDE FLUSH 10ML SYR IVF SCH (08:41)
[2020-08-24 08:46] LABS: CREATININE,URINE RANDOM 47.3 mg/dL
[2020-08-24] MEDS ORDERED: GABAPENTIN 100 MG CAPSULE PO SCH (09:00)
[2020-08-24 09:49] LABS: ANION GAP 8 mmol/L (5-15); CALCIUM 7.5 mg/dL (8.5-10.1); CHLORIDE 114 mmol/L (98-107); CREATININE 0.68 mg/dL (0.55-1.02)
[2020-08-24] MEDS: LEVETIRACETAM 500 MG TABLET PO SCH (10:07)
[2020-08-24] MEDS: FAMOTIDINE 20 MG/2 ML IVPush SCH (10:07)
[2020-08-24] MEDS: SENNA/DOCUSATE TABLET PO SCH (10:08)
[2020-08-24] MEDS: INSULIN GLARGINE 100 UNITS/ML, PEN SQ-INSULIN SCH (11:03)
[2020-08-24] MEDS ORDERED: AMOX1TAB64 PO (11:59)
== END 2020-08-24 14:30 | disposition home or self-care (01) | DRG 638 ==
LOC: EDBD 07:57 → ED 10:49 → MERGE 13:32 → EDIP 13:32 → CCU 13:43 → 3N 08-23 13:51 → DCLOUNGE 08-24 14:25
PROVIDERS: ADMIT Family Medicine; ATTEND Family Medicine
DX: E10.10 Type 1 diabetes mellitus with ketoacidosis without coma (principal); E46 Unspecified protein-calorie malnutrition; L03.116 Cellulitis of left lower limb; Z91.040 Latex allergy status; Z91.018 Allergy to other foods; E03.9 Hypothyroidism, unspecified; E86.0 Dehydration; E10.622 Type 1 diabetes mellitus with other skin ulcer; L98.499 Non-pressure chronic ulcer of skin of other sites with unspecified severity; Z68.22 Body mass index [BMI] 22.0-22.9, adult
CPT/HCPCS: 36415; 96361; 96365; 96366; 96368; 96375; 99291; J3490; 71045; 80048; 80053; 80076; 80307; 81003; 82010; 82570; 82803; 82962; 83036; 83605; 83690; 83735; 84100; 84300; 84439; 84443; 84703; 85025; 87040; 87081; G0378; J0295; J1650; J1815; J1885; J2405; J3370; J3480; J2270; J7030; J7050

== ENCOUNTER 2020-10-10 16:20 | Inpatient (IN) | payer MEDICAID ==
[~2020-10-10] VITALS: Ht 162.6 cm; Wt 48.5 kg
[~2020-10-10 16:20] MED LIST changes: +AMOX1TAB64 PO; +GABA-826 PO
--- NOTE | 2020-10-10 17:19 | NUR ---
SUDHA KENNEDY AT BEDSIDE. PT C/O CONTINUED ABSCESSES TO RIGHT LEG AND ARM. PT REPORTS BEING HOMELESS AND DOES NOT FEEL SAFE WHERE SHE IS CURRENTLY STAYING. PT IS A BAD HISTORIAN AND NOT DIVULGING MANY DETAILS WHY SHE DOES NOT FEEL SAFE. STEP DAD AT BEDSIDE WELL.
[2020-10-10] MEDS ORDERED: LIDOCAINE 1%-EPI 1:100K, 50ML INFIL ONE (17:30)
[2020-10-10] MEDS ORDERED: DIPH,PERTUSS(ACELL),TET VAC/PF 0.5 ML IM-VACC ONE ×2 (17:30→17:42)
[2020-10-10 17:37] LABS: MEAN CORPUSCULAR HEMOGLOBIN 33.1 pg (27.0-34.8); MEAN CORPUSCULAR HGB CONC 31.5 g/dL (32.4-35.8); MEAN PLATELET VOLUME 8.8 fL (7.4-10.4); PLATELET COUNT 239 x10^3/uL (130-400); RED BLOOD COUNT 3.93 x10^6/uL (3.82-5.3); RED CELL DISTRIBUTION WIDTH 14.9 % (9.6-15.2)
--- NOTE | 2020-10-10 17:45 | NUR ---
REPORT TO ERIC CLIFFORD.
[2020-10-10] MEDS ORDERED: LIDOCAINE-MPF 1%, 5ML ONE (17:47)
[2020-10-10] MEDS ORDERED: LIDOCAINE 1%-EPI 1:100K, 20ML ONE (17:47)
[2020-10-10] MEDS ORDERED: HYDROmorphone 1 MG/ML, 1ML INJ ONE (17:49)
[2020-10-10 17:50] LABS: ANION GAP 22 mmol/L (5-15); CHLORIDE 95 mmol/L (98-107)
[2020-10-10 17:55] LABS: CREATININE 0.93 mg/dL (0.55-1.02)
[2020-10-10 17:57] LABS: MD YES
[2020-10-10 18:00] LABS: BAND#(MANUAL) 2.18 x10^3/uL; BANDS%(MANUAL) 13 % (0-7); LYMPH#(MANUAL) 1.68 x10^3/uL (1-3.4); LYMPHS% (MANUAL) 10 % (22-44); METAMYELOCYTES# (MANUAL) 0.17 x10^3/uL (0-0); METAMYELOCYTES% (MANUAL) 1 % (0-1); MONOS#(MANUAL) 1.01 x10^3/uL (0.3-2.7); MONOS% (MANUAL) 6 % (2-9); SEG#(MANUAL) 11.76 x10^3/uL (1.8-6.8); SEGS% (MANUAL) 70 % (42-75)
[2020-10-10] MEDS ORDERED: HYDROmorphone 1 MG/ML, 1ML INJ IV ONE (18:00)
[2020-10-10 18:01] LABS: <PLATELET ESTIMATE> ADEQUATE; <PLT MORPHOLOGY> NORMAL PLT MORPH
[2020-10-10] MEDS ORDERED: CEFTRIAXONE PMX 1GM/50ML 50 ML ONE (18:25)
[2020-10-10] MEDS ORDERED: SODIUM CHLORIDE 0.9% 1,000ML IVBOLUS ONE ×2 (18:30→20:00)
[2020-10-10] MEDS ORDERED: CEFTRIAXONE PMX 1GM/50ML 50 ML IVPB ONE (18:30)
[2020-10-10] MEDS ORDERED: SODIUM CHLORIDE FLUSH 10ML SYR IVF ONE (18:30)
--- NOTE | 2020-10-10 18:31 | NUR ---
CRITICAL LAB VALURES REPORTED TO . SEE MAR FOR INTERVENTIONS
[2020-10-10 18:43] LABS: ACETONE, SERUM Large (80mg/dL) (Negative)
[2020-10-10 19:03] LABS: PH, VENOUS 6.906 pH (7.320-7.420)
--- NOTE | 2020-10-10 19:05 | NUR ---
critical lab values reported to ph 6.9 bicarb 4.9 co2 5.7
--- NOTE | 2020-10-10 19:22 | NUR ---
PT "STEPRAMIREZ" PUT BED RAIL DOWN. PT AND GUEST EDUCATED ON THE NEED TO KEEP BED RAILS UP
[2020-10-10] MEDS ORDERED: SODIUM CHLORIDE FLUSH 10ML SYR IVF PRN (19:30)
[2020-10-10] MEDS ORDERED: POTASSIUM CHLORIDE 20 MEQ TAB.ER.PRT ONE (19:59)
[2020-10-10] MEDS ORDERED: SODIUM BICARB 8.4%, 50ML SYRINGE IVPB ONE (20:00)
[2020-10-10] MEDS ORDERED: OXYcodone/APAP 5/325MG TABLET PO PRN (20:00)
[2020-10-10] MEDS ORDERED: morphine SULFATE 10 MG/ML, 1ML IVPush PRN ×2 (20:00)
[2020-10-10] MEDS ORDERED: POTASSIUM CHLORIDE 20 MEQ TAB.ER.PRT PO ONE (20:00)
[2020-10-10] MEDS ORDERED: ENALAPRILAT 1.25 MG/ML, 2ML IVPush PRN (20:00)
[2020-10-10] MEDS ORDERED: SODIUM CHLORIDE 0.9% 1,000 ML IV SCH (20:00)
[2020-10-10] MEDS ORDERED: ONDANSETRON 2MG/ML, 2ML IV PRN (20:00)
[2020-10-10] MEDS ORDERED: TEMAZEPAM 15 MG CAPSULE PO PRN (20:00)
[2020-10-10] MEDS ORDERED: GUAIFENESIN/COD200MG-20MG/10ML LIQUID PO PRN (20:00)
[2020-10-10] MEDS ORDERED: POLYETHYLENE GLYCOL 17 GM PACKET PO PRN (20:00)
[2020-10-10] MEDS ORDERED: METHOCARBAMOL 500 MG TABLET PO PRN (20:00)
[2020-10-10] MEDS ORDERED: FAMOTIDINE 20 MG/2 ML ONE (20:00)
[2020-10-10] MEDS ORDERED: VANCOMYCIN PER PHARMACY MC PRN ×2 (20:00)
[2020-10-10] MEDS ORDERED: ACETAMINOPHEN 325 MG TABLET PO PRN (20:00)
[2020-10-10] MEDS: FAMOTIDINE 20 MG/2 ML IVPush SCH (20:20)
[2020-10-10 20:29] LABS: ALANINE AMINOTRANSFERASE 122 U/L (12-78); ALBUMIN 3.2 g/dL (3.4-5.0)
[2020-10-10] MEDS ORDERED: VANCOMYCIN 1,900 MG in SODIUM CHLORIDE 0.9% 250 ML IV ONE (20:30)
[2020-10-10] MEDS: REGULAR INSULIN 100 UNITS in SODIUM CHLORIDE 0.9% 99 ML IV PRN (20:33)
[2020-10-10 20:39] LABS: ALKALINE PHOSPHATASE 394 U/L (45-117); BILIRUBIN,TOTAL 0.9 mg/dL (0.2-1.0); FREE T4 (FREE THYROXINE) 0.51 ng/dL (0.76-1.46); TOTAL PROTEIN 8.3 g/dL (6.4-8.2)
[2020-10-10] MEDS: ENOXAPARIN 40 MG/0.4 ML SQ SCH (20:40)
--- NOTE | 2020-10-10 20:44 | NUR ---
INSULIN DRIP VERIFIED BY SECOND RN. INFUSING AT THIS TIME
[2020-10-10] MEDS ORDERED: PHARMACOKINETIC CONSULTATION MC ONE (21:00)
[2020-10-10] MEDS ORDERED: PHARMACOKINETIC MONITORING MC PRN (21:00)
--- NOTE | 2020-10-10 21:35 | NUR ---
PT REFUSING FINGER STICK BLOOD GLUCOSE. "FUCK OFF. GET OUT OF HERE"
--- NOTE | 2020-10-10 21:36 | NUR ---
PT BECOMING AGITATED WHEN TRIED TO CLEAN HER FINGER FOR FINGERSTICK
[2020-10-10] MEDS: LEVOTHYROXINE 200 MCG TABLET PO SCH (21:40)
--- NOTE | 2020-10-10 21:57 | NUR ---
PT MOVED TO ROOM 18 PLACED ON HOSPITAL BED, ACCURATE WEIGHT OBTAINED.
[2020-10-10] MEDS ORDERED: LORazepam 2 MG/ML, 1ML ONE (21:59)
[2020-10-10] MEDS ORDERED: LORazepam 2 MG/ML, 1ML IVPush ONE (22:00)
--- NOTE | 2020-10-10 22:10 | NUR ---
BEDSIDE REPORT FROM ERIC AT THIS TIME, VSS PT RESTING ON HOSPITAL BED
--- NOTE | 2020-10-10 22:46 | NUR ---
FSBS 501 AT THIS TIME
--- NOTE | 2020-10-10 23:06 | NUR ---
PT INCON OF URINE, LINENS CHANGED PT REPOSITIONED TO POSITION OF COMFORT AT THIS TIME
--- NOTE | 2020-10-10 23:15 | NUR ---
RASHAUN () CALL FOR QUESTIONS/ INFORMATION
--- NOTE | 2020-10-10 23:57 | NUR ---
REPORT FROM VENESSA PAREDES
[2020-10-11 00:02] LABS: CHLORIDE 113 mmol/L (98-107); CREATININE 0.94 mg/dL (0.55-1.02)
[2020-10-11 00:12] LABS: ANION GAP 16 mmol/L (5-15)
[2020-10-11] MEDS: SODIUM CHLORIDE 0.9% 1,000 ML IV SCH ×5 (00:13→11:43)
--- NOTE | 2020-10-11 00:58 | NUR ---
PER DR ANDERSON, NO URINARY MORENO TO BE PLACED AT THIS TIME DUE TO RISK FOR INFECTION.
--- NOTE | 2020-10-11 00:59 | NUR ---
1 BAG OF MARIJUANA FOUND ON THE GROUND IN PT ROOM. MARIJUANA WASTED IN MED ROOM WITH VENESSA TORRES A WITNESS.
[2020-10-11] MEDS: D5%-0.45NACL+KCL 20MEQ 1,000 ML IV SCH ×3 (01:57→11:34)
[2020-10-11 02:55] LABS: PH, VENOUS 7.176 pH (7.320-7.420)
[2020-10-11 02:57] LABS: ANION GAP 8 mmol/L (5-15); CALCIUM 8.3 mg/dL (8.5-10.1); CHLORIDE 117 mmol/L (98-107); CREATININE 0.95 mg/dL (0.55-1.02)
[2020-10-11 03:29] VITALS: BP 112/80
[2020-10-11 04:00] VITALS: BP 113/77
[2020-10-11 04:17] LABS: BASOPHILS % (AUTO) 1 % (0-1); EOSINOPHILS % (AUTO) 0 % (1-7); LYMPHOCYTES % (AUTO) 15 % (22-44); MD NO; MEAN CORPUSCULAR HEMOGLOBIN 33.2 pg (27.0-34.8); MEAN CORPUSCULAR HGB CONC 33.8 g/dL (32.4-35.8); MEAN PLATELET VOLUME 8.3 fL (7.4-10.4); MONOCYTES % (AUTO) 7 % (2-9); NEUTROPHILS % (AUTO) 78 % (42-75); PLATELET COUNT 260 x10^3/uL (130-400); RED CELL DISTRIBUTION WIDTH 13.5 % (9.6-15.2)
[2020-10-11] MEDS: LEVOTHYROXINE 200 MCG TABLET PO SCH (05:42)
[2020-10-11 06:45] LABS: CALCIUM 8.3 mg/dL (8.5-10.1); CHLORIDE 115 mmol/L (98-107)
[2020-10-11 06:49] LABS: ANION GAP 23 mmol/L (5-15); CREATININE 0.96 mg/dL (0.55-1.02)
[2020-10-11] MEDS: VANCOMYCIN PMX 1GM/200ML 200 ML IV SCH ×2 (08:52→21:15)
[2020-10-11] MEDS: FAMOTIDINE 20 MG/2 ML IVPush SCH (08:53)
[2020-10-11 10:44] LABS: ANION GAP 10 mmol/L (5-15); CALCIUM 8.6 mg/dL (8.5-10.1); CHLORIDE 119 mmol/L (98-107)
[2020-10-11] MEDS: REGULAR INSULIN 100 UNITS in SODIUM CHLORIDE 0.9% 99 ML IV PRN (13:27)
[2020-10-11 14:43] LABS: ANION GAP 10 mmol/L (5-15); CALCIUM 8.3 mg/dL (8.5-10.1); CHLORIDE 118 mmol/L (98-107)
[2020-10-11] MEDS: AMPICILLIN/SULBACTAM 3 GM in SODIUM CHLORIDE 0.9% 100 ML IV SCH ×2 (15:36→22:55)
[2020-10-11] MEDS ORDERED: DEXTROSE 50%, 50ML SYRINGE IVPush PRN (16:00)
[2020-10-11] MEDS: INSULIN LISPRO 100 UNITS/ML, PEN SQ-INSULIN SCH ×2 (16:00→22:07)
[2020-10-11] MEDS ORDERED: MAGNESIUM SULFATE PMX 2GM/50ML 50 ML IV ONE (16:00)
[2020-10-11] MEDS ORDERED: POTASSIUM CHLORIDE 20 MEQ TAB.ER.PRT PO ONE (16:00)
[2020-10-11] MEDS ORDERED: GLUCAGON 1 MG IM PRN (16:00)
[2020-10-11] MEDS ORDERED: DEXTROSE 4 GM TAB.CHEW PO PRN (16:00)
[2020-10-11] MEDS ORDERED: INSULIN GLARGINE 100 UNITS/ML, PEN SQ-INSULIN ONE (16:00)
[2020-10-11] MEDS: GABAPENTIN 100 MG CAPSULE PO SCH ×2 (16:07→22:03)
[2020-10-11] MEDS: POTASSIUM ACID PHOSPHATE 500 MG TABLET.SOL PO SCH ×2 (16:07→22:09)
[2020-10-11] MEDS ORDERED: morphine SULFATE 10 MG/ML, 1ML IVPush PRN (17:00)
[2020-10-11] MEDS ORDERED: CEFTRIAXONE PMX 2GM/50ML 50 ML IVPB SCH ×2 (18:30)
[2020-10-11 18:57] LABS: ANION GAP 12 mmol/L (5-15); CALCIUM 8.2 mg/dL (8.5-10.1); CHLORIDE 114 mmol/L (98-107)
[2020-10-11 18:58] LABS: CREATININE 0.78 mg/dL (0.55-1.02)
[2020-10-11] MEDS ORDERED: SODIUM CHLORIDE 0.9% 1,000 ML IV SCH (19:00)
[2020-10-11 20:00] VITALS: BP 102/72
[2020-10-11] MEDS: ENOXAPARIN 40 MG/0.4 ML SQ SCH (20:00)
[2020-10-11] MEDS: SODIUM CHLORIDE FLUSH 10ML SYR IVF SCH (21:16)
[2020-10-11] MEDS: INSULIN GLARGINE 100 UNITS/ML, PEN SQ-INSULIN SCH (22:02)
[2020-10-11] MEDS: LEVETIRACETAM 500 MG TABLET PO SCH (22:03)
[2020-10-12 00:01] VITALS: BP 121/82
[2020-10-12] MEDS: POTASSIUM ACID PHOSPHATE 500 MG TABLET.SOL PO SCH ×2 (03:11→11:23)
[2020-10-12] MEDS: AMPICILLIN/SULBACTAM 3 GM in SODIUM CHLORIDE 0.9% 100 ML IV SCH ×4 (03:11→22:14)
[2020-10-12] MEDS: LEVOTHYROXINE 100 MCG TABLET PO SCH (05:51)
[2020-10-12 07:41] VITALS: BP 115/70
[2020-10-12 08:12] LABS: BASOPHILS % (AUTO) 1 % (0-1); EOSINOPHILS % (AUTO) 1 % (1-7); LYMPHOCYTES % (AUTO) 18 % (22-44); MEAN CORPUSCULAR HEMOGLOBIN 33.5 pg (27.0-34.8); MEAN CORPUSCULAR HGB CONC 34.7 g/dL (32.4-35.8); MONOCYTES % (AUTO) 7 % (2-9); NEUTROPHILS % (AUTO) 73 % (42-75); PLATELET COUNT 231 x10^3/uL (130-400); RED BLOOD COUNT 3.12 x10^6/uL (3.82-5.3); RED CELL DISTRIBUTION WIDTH 13.8 % (9.6-15.2)
[2020-10-12 08:19] LABS: MD NO
[2020-10-12 08:21] LABS: ALANINE AMINOTRANSFERASE 96 U/L (12-78); ALBUMIN 2.1 g/dL (3.4-5.0); ANION GAP 12 mmol/L (5-15); CHLORIDE 114 mmol/L (98-107); CREATININE 1.02 mg/dL (0.55-1.02)
[2020-10-12 08:23] LABS: ALKALINE PHOSPHATASE 269 U/L (45-117); BILIRUBIN,TOTAL 0.4 mg/dL (0.2-1.0); TOTAL PROTEIN 6.1 g/dL (6.4-8.2)
[2020-10-12] MEDS: INSULIN GLARGINE 100 UNITS/ML, PEN SQ-INSULIN SCH ×2 (08:29→20:59)
[2020-10-12] MEDS: INSULIN LISPRO 100 UNITS/ML, PEN SQ-INSULIN SCH ×4 (08:30→20:59)
[2020-10-12] MEDS: VANCOMYCIN PMX 1GM/200ML 200 ML IV SCH ×2 (08:33→21:00)
[2020-10-12] MEDS: LEVETIRACETAM 500 MG TABLET PO SCH ×2 (08:38→20:58)
[2020-10-12] MEDS: GABAPENTIN 100 MG CAPSULE PO SCH ×3 (08:38→20:58)
[2020-10-12] MEDS: SODIUM CHLORIDE FLUSH 10ML SYR IVF SCH ×2 (08:39→22:15)
[2020-10-12] MEDS: POTASSIUM CHLORIDE 20 MEQ TAB.ER.PRT PO SCH ×2 (10:00→17:00)
[2020-10-12 13:30] VITALS: BP 119/78
[2020-10-12] MEDS: ENOXAPARIN 40 MG/0.4 ML SQ SCH (20:00)
[2020-10-12 20:16] VITALS: BP 124/82
[2020-10-12] MEDS ORDERED: MUPIROCIN OINT 2%, 22GM TP SCH (22:00)
[2020-10-13 01:33] VITALS: BP 113/77
[2020-10-13 02:23] LABS: CLOSTRIDIUM DIFFICILE ANTIGEN NEGATIVE; CLOSTRIDIUM DIFFICILE TOXIN NEGATIVE (Negative)
[2020-10-13] MEDS: AMPICILLIN/SULBACTAM 3 GM in SODIUM CHLORIDE 0.9% 100 ML IV SCH (03:49)
[2020-10-13] MEDS: LEVOTHYROXINE 100 MCG TABLET PO SCH (05:47)
[2020-10-13] MEDS: INSULIN LISPRO 100 UNITS/ML, PEN SQ-INSULIN SCH (07:00)
== END 2020-10-13 07:21 | disposition left against medical advice (07) | DRG 871 ==
LOC: ED 19:12 → EDIP 19:47 → CCU 10-11 02:06 → 4NE 10-11 23:56
PROVIDERS: ADMIT Internal Medicine; ATTEND Internal Medicine
PROC: 0X9D0ZZ Drainage of Right Lower Arm, Open Approach (ICD-10-PCS; principal; 2020-10-10)
PROC: 0Y9C0ZZ Drainage of Right Upper Leg, Open Approach (ICD-10-PCS; 2020-10-10)
DX: A41.9 Sepsis, unspecified organism (principal); E10.10 Type 1 diabetes mellitus with ketoacidosis without coma; N17.0 Acute kidney failure with tubular necrosis; L02.31 Cutaneous abscess of buttock; L02.413 Cutaneous abscess of right upper limb; D63.8 Anemia in other chronic diseases classified elsewhere; E03.9 Hypothyroidism, unspecified; E83.39 Other disorders of phosphorus metabolism; E83.42 Hypomagnesemia; E87.6 Hypokalemia; E87.8 Other disorders of electrolyte and fluid balance, not elsewhere classified; F15.10 Other stimulant abuse, uncomplicated; F17.210 Nicotine dependence, cigarettes, uncomplicated; F20.9 Schizophrenia, unspecified; F31.9 Bipolar disorder, unspecified; E10.40 Type 1 diabetes mellitus with diabetic neuropathy, unspecified; J45.909 Unspecified asthma, uncomplicated; Z59.0 Homelessness; Z79.4 Long term (current) use of insulin; Z91.14 Patient's other noncompliance with medication regimen
CPT/HCPCS: 10060; 36415; 80048; 80053; 80074; 80202; 82010; 82803; 82962; 83036; 83605; 83690; 83735; 84100; 84439; 84443; 84703; 85025; 87040; 87070; 87077; 87081; 87147; 87186; 87205; 87324; 90471; 90715; 96365; 96375; 99291; G0378; J0295; J0696; J1170; J1815; J3370; J2060; J2270; J3475; J3480; J7030; J7050